=== PATIENT | male | born 1985 | race Caucasian/White ===

== ENCOUNTER 2025-07-19 16:06 | Emergency (ER) | payer OTHER, MEDICAID, SELFPAY ==
--- OUTSIDE RECORDS SUMMARY | 2025-07-19 16:09 | XMS_ITS | Clinical Summary ---
Author Organization [facility] Address [address] [place] [id number] Care Team Providers Care Area Field Worker Name Role Phone Tyra Gilbert MD Primary Care Provider Allergies Active Allergy Reactions Criticality Noted Date Comments Amoxicillin Hives 07/17/2020 Cefaclor Rash 02/02/2018 Lactose-Reduced Food With Fibr Anaphylaxis High 05/2022 Penicillins Rash 02/02/2018 Medications diphenhydrAMINE (BENADRYL) 25 mg tablet Take 25 mg by mouth every 4 hours if needed. Active melatonin 10 mg cap Take 10 mg by mouth. Active ibuprofen (ADVIL; MOTRIN) 800 mg tablet Take 1 tablet by mouth 2 times daily if needed. 0 07/08/2020 Active ALPRAZolam (XANAX) 1 mg tabletIndicatio ns:Situational anxiety TAKE 1 TABLET NEEDED 1 HOURS BEFORE DENTAL APPT 5 Tablet 03/09/2023 Active traZODone (DESYREL) 50 mg tabletIndicatio ns:Generalized anxiety disorder TAKE 3 TABLETS(150 MG) BY MOUTH AT BEDTIME 270 Tablet 06/18/2025 Active Active Problems Problem Noted Date Diagnosed Date Postoperative ileus 06/20/2020 Ileus 02/02/2018 Pelvic abscess in male 02/02/2018 Ruptured appendicitis 02/02/2018 Seasonal allergies 02/02/2018 Anxiety and depression 02/02/2018 Encounters Date Type Department Care Team Description 06/15/2025 Refill [facility] [address] [place] [address] Tyra Gilbert MD Refill Request (Trazodone) from Last 3 Months Immunizations Immunization Administration Dates Next Due DT (Age < 7 years) 03/17/1995 Hepatitis B (Adult) 03/01/1995,08/19/1994,1993 Influenza, IIV4 (=>6mos) MDV 10/23/2019,10/26/20 18 Tdap 05/13/2022,04/07/2010 Family History Medical History Relation Name Comments Brain cancer Paternal Grandmother Relation Name Status Comments Paternal Grandmother Social History Tobacco Use Types Packs/Day Years Used Date Smoking Tobacco: Never Smokeless Tobacco: Never Tobacco Cessation:Counseling Given: Yes Alcohol Use Standard Drinks/Week Comments Yes 0 (1 standard drink = 0.6 oz pur e alcohol) PHQ-2 Answer Date Recorded PHQ-2 TOTAL SCORE 3 2024 Social Connections Answer Date Recorded Do you often feel lonely or isolated from those around you? 0 09/12/2023 Financial Resource Strain Answer Date R ecorded Difficulty of Paying Living Expenses 3 09/12/2023 Difficulty of Paying Living Expenses Not on file 09/12/2023 Food Insecurity Answer Date Recorded Do you worry your food will run out before you are able to buy more? 1 09/12/2023 Transportation Needs Answer Date Record ed Does lack of transportation keep you from medica l appointments? 1 09/12/2023 Does lack of transportation keep you from work, meetings or getting things that you need? 1 09/12/2023 Housing Stability Answer Date Recorded What is your housing situation today? 1 09/12/2023 Sex and Gender Information Value Date Recorded Sex Assigned at Not on file Legal Sex Male 5:24 PM CDT Gender Identity Not on file Sexual Orientation Not on file Obstetrics History Last Filed Vital Signs Vital Sign Reading Time Taken Comments Blood Pressure 118/64 09/10/2024 4:02 PM DIRECTOR HOME HEALTH Pulse 87 09/10/2024 4:02 PM DIRECTOR HOME HEALTH Temperature 37.3 C (99.1 F) 09/10/2024 4:39 PM [employer]OR HOME HEALTH Respiratory Rate 18 09/10/2024 4:02 PM [employer]OR HOME HEALTH Oxygen Saturation 97% 09/10/2024 4:02 PM [employer] HOME HEALTH Inhaled Oxygen Concentration - - Weight 93.9 kg (207 lb) 09/10/2024 4:02 PM [employer]OR HOME HEALTH Height 180.3 cm (5' 11) 09/12/2023 7:17 AM DIRECTOR HOME HEALTH Body Mass Index 28.87 09/12/2023 7:17 AM DIRECTOR HOME HEALTH Plan of Treatment Health Maintenance Due Date Last Done Comments HIV for age 15-65 1998 Hepatitis C screening for age 18-79 2001 HPV series for age 9-45 (1 - 3-dose SCDM series) 2010 BMI (ht and wt on same day) for age 18+ 09/12/2024 09/12/2023, 10/26/2022, 05/13/2022, Additional history exists Depression screening for age 12+ 2025 2024, 09/12/2023, 05/13/2022, Additional history exists COVID-19 vaccine series (2023- season) 2025 Influenza Vaccine (#1) 2025 10/23/2019, 2017 Lipids for age 35-44 05/13/2027 05/13/2022 Tetanus booster 05/13/2032 05/13/2022, 04/07/2010 RSV vaccine for adults or (1 - 1-dose 75+ series) 2058 Hepatitis B series for 19+ Completed 03/01, 08/19/1994, 07/20/1994 Pneumococcal series for age 6-49 Aged Out No longer eligible based on patient's age to complete this topic Procedures Procedure Name Priority Date/Time Associated Diagnosis Comments LIPID PANEL Routine 05/13/2022 9:15 AM CDT Lipid screening from Last 3 Months or Most Recently Relevant to Health Maintenance Results * (ABNORMAL) LIPID PANEL (05/13/2022 9:15 AM CDT) CHOLESTEROL,TOTAL 197 100 - 199 mg/dL 05/13/2022 4:29 PM CDT [facility] TRIGLYCERIDES 97 <150 mg/dL 05/13/2022 4:29 PM CDT [facility] HDL CHOLESTEROL 39(L) >40 mg/dL 4:29 PM CDT [facility] NON-HDL CHOLESTEROL 158(H) <145 mg/dl 05/13/2022 4:29 PM CDT [facility] CHOL/HDL RATIO 5.05(H) <4.50 05/13/2022 4:29 PM CDT [facility] LDL CHOLESTEROL 139(H) <=130 mg/dL 05/13/2022 4:29 PM CDT [facility] VLDL CHOLESTEROL 19 <=30 mg/dL 05/13/2022 4:29 PM CDT [facility] PROVIDER ORDERED STATUS RANDOM 05/13/2022 4:29 PM CDT [facility] Blood BLOOD SPECIMEN / Unknown Venipuncture / Unknown 05/13/2022 9:15 AM CDT 05/13/2022 9:16 AM CDT us Tyra Gilbert MD CHEMISTRY Final Resul t [facility] [address] [place] [address], [place] from Last 3 Months or Most Recently Relevant to Health Maintenance Insurance [address] [place] [id number] [place] [id number] Advance Directives * Full Code (Latest Code Status on File) Date Activated Date Inactivated Comments 02/02/2018 8:07 PM 02/08/2018 6:31 PM Question Answer Comments Code Status Discussion: Discussed Care Teams Area Field Worker Relationship Specialty Start Date End Date Tyra Gilbert MD [address] [place] [address] PCP - General Family Practice 07/17/20
--- OUTSIDE RECORDS SUMMARY | 2025-07-19 16:09 | XMS_ITS | Clinical Summary ---
Author Organization [facility] Address [address] [place] [address]. [place] [address] Care Team Providers Care College Instructor Name Role Phone Timur Higgins MD Primary Care Provider [phone] Allergies Active Allergy Reactions Criticality Noted Date Comments Amoxicillin Hives 02/13/2019 Cefaclor Rash Low 02/02/2018 Penicillin G Hives 02/13/2019 Medications fexofenadine (PEDRO) 60 MG tablet Take 60 mg by mouth 2 times daily Active traZODone (DESYREL) 50 MG tablet Take 50 mg by mouth At Bedtime Active cyclobenzaprine (FLEXERIL) 10 MG tabletIndicatio ns:Chronic right shoulder pain Take 1 tablet (10 mg) by mouth 3 times daily as needed for muscle spasms 30 tablet 1 9 Active Additional Information Patient not taking.Reported on 03/25/2020 ALPRAZolam (XANAX) 0.5 MG tablet TAKE 1 DIRECTED 1 TO 2 TABLETS BY MOUTH NEEDED BEFORE DENTAL APPOINTMENT 0 Active diphenhydrAMINE (BENADRYL) 25 MG tablet Take 25 mg by mouth Active Social History Tobacco Use Types Packs/Day Years Used Date Smoking Tobacco: Never Smokeless Tobacco: Never Tobacco Cessation:Counseling Given: Not Answered Adolescent Education Answer Date Record ed Getting School Help Needed Not on file 08/21 Sex and Gender Information Value Date Recorded Sex Assigned at Not on file Legal Sex Male 3:21 AM WEAPONS DESIGNER Gender Identity Not on file Sexual Orientation Not on file Last Filed Vital Signs Vital Sign Reading Time Taken Comments Blood Pressure 125/85 10/24/2022 10:23 AM WEAPONS DESIGNER Pulse 75 10/24/2022 10:23 AM WEAPONS DESIGNER Temperature 36.6 C (97.9 F) 10/24/2022 8:39 AM WEAPONS DESIGNER Respiratory Rate 14 10/24/2022 10:23 AM WEAPONS DESIGNER Oxygen Saturation 98% 10/24/2022 8:39 AM WEAPONS DESIGNER Inhaled Oxygen Concentration - - Weight 79.4 kg (175 lb) 10/24/2022 8:39 AM WEAPONS DESIGNER Height 180.3 cm (5' 11) 10/24/2022 8:39 AM WEAPONS DESIGNER Body Mass Index 24.41 10/24/2022 8:39 AM WEAPONS DESIGNER Plan of Treatment Health Maintenance Due Date Last Done Comments ADVANCE CARE PLANNING 1983 ANNUAL REVIEW OF HM ORDERS 1983 DIABETES SCREENING 1983 HIV SCREENING 1998 HEPATITIS C SCREENING 2001 YEARLY PREVENTIVE VISIT 05/13/2023 05/13/2022 LIPID 2023 PHQ-2 (once per calendar year) 2024 COVID-19 VACCINE (1 - 2023-2 5 season) 2025 INFLUENZA VACCINE (#1) 2025 9, 10/26/2018 DTAP/TDAP/TD VACCINE (3 - Td or Tdap) 05/13/2032 05/13/2022, 04/07/2010 ZOSTER VACCINE (1 of 2) 2033 HEPATITIS B VACCINE Completed 03/01/1995, 08/19/1994, 07/20/1994 HPV VACCINE (No Doses Required) Completed MENINGITIS VACCINE Aged Out No longer eligible based on patient's age to complete this topic PNEUMOCOCCAL VACCINE: PEDIATRICS (0 to 5 YEARS) AND AT-RISK PATIENTS (6 to 49 YEARS) Aged Out No longer eligible b ased on patient's age to complete this topic Insurance MEDICAID [place] [employer] Care Teams College Instructor Relationship Specialty Start Date End Date Timur Higgins MD PCP - General Family Practice 02/13/19
[2025-07-19 16:18] VITALS: BP 127/83; PULSE 67; RESP 16; TEMP 36.4; O2SAT 98; BMI 28.9
--- NOTE | 2025-07-19 16:40 | ED.HEATRA ---
HPI - Head Injury General Time Seen by Provider: 16:41 Date Seen: 07/19/25 Chief complaint: Head Injury/Pain Stated complaint: Hit the back of head Time Seen by Provider: 07/19/25 16:37 Source: patient and RN notes reviewed Mode of arrival: ambulatory Limitations: no limitations History of Present Illness HPI Narrative: This 40-year-old male is coming in with concern of head injury. He states he hit the back of his head quite hard on the pickup truck topper. He did not have the tailgate down, was looking in the back bed of the truck and backed up to stand up, cracking the back of his left head on the topper. He states that his vision felt funny for a brief moment, did not drop to the ground/no loss of consciousness. He initially felt like his airway was closing off. He notes right now that he is having no difficulty breathing, no difficulty swallowing. He has felt a little confused, bright lights seem to bother him but he states his vision overall is normal. He has had no vomiting. He just felt like he should not drive. He states that he felt he should get checked out as he does know of people dropping after injuring their head. Complaint: head injury Related Data Home Medications ?Medication ?Instructions ?Recorded ?Confirmed trazodone 50 mg tablet 150 mg PO QDAY 04/11/23 07/19/25 alprazolam 1 mg tablet (Xanax) 1 mg PO QDAY PRN 07/22/23 07/19/25 fexofenadine 180 mg tablet 180 mg PO Q24H 07/22/23 07/19/25 ([facility]) Allergies Allergy/AdvReac Type Severity Reaction Status Date / Time Penicillins Allergy Intermediate hives Verified 07/19/25 16:26 carrots Allergy Severe throat Uncoded 07/19/25 16:26 swelling ceflasporin Allergy Unknown Uncoded 07/22/23 12:29 Review of Systems Status of ROS: Reports: 6 or more systems reviewed and unremarkable except as noted in History and below [facility] Medical History Shoulder strain ?S46.919A - Strain of unspecified muscle, fascia and tendon at shoulder and upper arm level, unspecified arm, initial encounter (ICD-10) Exam Const: Vital Signs, click to edit/add: Vital Signs - 24 hr 07/19/25 16:18 Temperature 97.6 F Pulse Rate [Pulse Oximeter] 67 Respiratory Rate 16 Blood Pressure [Ri ght Upper Arm] 127/83 Pulse Oximetry 98 Oxygen Delivery Me thod Room Air This 40-year-old male is alert, interactive, no apparent distress. Sitting on the bed in room 5. Head is atraumatic, he states he hit his head in the back left area, no palpable tenderness at this time. No midline tenderness of his neck, no paraspinal tenderness of his neck, full range of motion of his neck without any pain. Pupils are equal round reactive, sclera clear, TMs normal, no hemotympanum or traumatic change. No pain over his jaw or his TMJs. Lungs are clear, good air entry, no wheezing or crackles, no tachypnea accessory muscle use. CV regular rate and rhythm, no murmur. He has no neck tenderness, no adenopathy, no masses. Patient was ambulatory into the ED of his own accord, did watch him ambulate. Upper extremities with normal and symmetrical strength. No neurologic gross deficits noted. Documenting provider has reviewed patient's vital signs: yes Course Course ED Course: Patient is ultimately concerned about intracranial pathology with brain bleed or skull fracture. We did discuss concussion symptoms, he certainly could have some mild symptoms that are happening. He would like to proceed with head CT imaging. I personally feel that he may be able to observe but he is quite worried. I do think head CT imaging is reasonable in this situation and will order a noncontrast. Reevaluation(s) Time of Reevaluation #1: 17:24 Reevaluation #1: Have reviewed normal CT findings. Discussed concussion findings, he may have symptoms of early concussion; time will tell if these are ongoing. Vital Signs Vital signs: Initial Vital Signs Temperature 97.6 F 07/19/25 16:18 Temperature Source Temporal Artery Scan 07/19/25 16:18 Pulse Rate 67 07/19/25 16:18 Respiratory Rate 16 07/19/25 16:18 Blood Pressure 127/83 07/19/25 16:18 Blood Pressure Mean 97 07/19/25 16:18 Blood Pressure Position Sitting 07/19/25 16:18 Pulse Oximetry 98 07/19/25 16:18 Oxygen Delivery Method Room Air 07/19/25 16:18 Vital Signs Temperature 97.6 F 07/19/25 16:18 Pulse Rate 67 07/19/25 16:18 Respiratory Rate 16 07/19/25 16:18 Blood Pressure 127/83 07/19/25 16:18 Pulse Oximetry 98 07/19/25 16:18 Oxygen Delivery Method Room Air 07/19/25 16:18 Temperature 97.6 F 07/19/25 16:18 Pulse Rate 67 07/19/25 16:18 Respiratory Rate 16 07/19/25 16:18 Blood Pressure 127/83 07/19/25 16:18 Pulse Oximetry 98 07/19/25 16:18 Oxygen Delivery Method Room Air 07/19/25 16:18 MDM - Head Injury Imaging Data CT scan - head: Attestation: I have reviewed the pertinent imaging results. My impression: Did visualize his head CT and on my preliminary review do not appreciate acute pathology. Will await Radiology over-read. Radiologist's impression: Patient: JUANITO HENDERSON Facility:?[facility] Patient ID:?[id number] Site Patient ID:?[id number]. Site :?[id number] Study:?CT-Head W/O-07/19/2025 5:03:48 PM Ordering Physician:Gabi Steward Final Report: INDICATION: Hit head, pain TECHNIQUE: CT head without contrast. COMPARISON: None. FINDINGS: CSF spaces: Within normal limits for age. Brain parenchyma and extra-axial spaces: The au-white differentiation is normal. No sign of mass, hemorrhage, or midline shift. No extra-axial fluid collection. Skull base and calvarium: Minimal scattered paranasal sinus mucosal thickening. The mastoid air cells are clear. The visualized orbits are grossly unremarkable. No skull fractures. IMPRESSION: No acute intracranial abnormality. Please note that all CT scans at this facility use dose modulation, iterative reconstruction, and/or weight-based dosing when appropriate to reduce radiation dose to as low as reasonably achievable. Dictated by Susan Escudero MD @ 07/19/2025 5:13:04 PM (Electronic Signature) Discharge Plan Discharge Clinical Impression: Closed head injury Qualifiers: Encounter type: initial encounter Qualified Code(s): S09.90XA - Unspecified injury of head, initial encounter Patient Disposition: Home, Self-Care Condition: Stable Instructions: Concussion (ED), Head Injury (ED) Additional Instructions: If you have ongoing symptoms of concussion please follow-up in clinic next week for further evaluation and treatment. It is fine to use Tylenol and ibuprofen per bottle directions as needed for symptom control. You had a normal head CT here tonight which is very reassuring. CT scans do not show concussion however and if you have ongoing symptoms as outlined in the concussion handout, do recommend follow up in clinic. Activity Level: Activity as Tolerated Prescriptions: No Action trazodone 50 mg tablet 150 mg PO QDAY alprazolam [Xanax] 1 mg tablet 1 mg PO QDAY PRN fexofenadine [[facility]] 180 mg tablet 180 mg PO Q24H Follow Up/Referrals: Yi Valdes MD [Primary Care Provider, Family Practice] Stand Alone Forms: [facility] Info Instructions
--- NOTE | 2025-07-19 16:51 | CRLHL7_ITS ---
For Patients: As a result of the Century Cures Act, medical imaging exams and procedure reports are released immediately into your electronic medical record. You may view this report before your referring provider. If you have questions, please contact your health care provider. INDICATION: Hit head, pain TECHNIQUE: CT head without contrast. COMPARISON: None. FINDINGS: CSF spaces: Within normal limits for age. Brain parenchyma and extra-axial spaces: The au-white differentiation is normal. No sign of mass, hemorrhage, or midline shift. No extra-axial fluid collection. Skull base and calvarium: Minimal scattered paranasal sinus mucosal thickening. The mastoid air cells are clear. The visualized orbits are grossly unremarkable. No skull fractures. IMPRESSION: No acute intracranial abnormality. Please note that all CT scans at this facility use dose modulation, iterative reconstruction, and/or weight-based dosing when appropriate to reduce radiation dose to as low as reasonably achievable. Dictated by Susan Escudero MD @ 07/19/2025 5:13:04 PM (Electronically Signed)
== END 2025-07-19 17:46 | disposition home or self-care (01) ==
PROVIDERS: Emergency Provider Family Medicine; PCP Family Medicine
DX: S09.90XA Unspecified injury of head, initial encounter (principal); W22.8XXA Striking against or struck by other objects, initial encounter
CPT/HCPCS: 70450; 99283; 99284